=== PATIENT | female | born 1960 | race Caucasian/White ===

== ENCOUNTER → 2017-05-25 | Outpatient (CLI) | payer BC ==
--- NOTE | 2017-05-25 15:20 | MAMMOGRAPHY REPORT ---
BILATERAL DIGITAL SCREENING MAMMOGRAM TOMOSYNTHESIS WITH CAD: 05/25/2017 CLINICAL HISTORY: Routine screening. Patient has no complaints. TECHNIQUE: Breast tomosynthesis in addition to standard 2D mammography was performed. Current study was also evaluated with a Computer Aided Detection (CAD) system. COMPARISON: Comparison is made to exams dated: 04/29/2016 mammogram, 04/10/2015 aspiration, 04/10/2015 ul trasound biopsy, 04/10/2015 mammogram, 04/04/2015 ultrasound, and 03/19/2015 mammogram - [facility]. BREAST COMPOSITION: There are scattered areas of fibroglandular density in both breasts. FINDINGS: There is stable asymmetry in the lateral right breast and a stable ribbon-shaped biopsy mar ker clip in the upper outer left breast. No new suspicious mass, architectural distortion or cluster of microcalcifications is seen. IMPRESSION: ACR BI-RADS CATEGORY 1: NEGATIVE There is no mammographic evidence of malignancy. A 1 year screening mammogram is recommended. The pa tient will receive written notification of the results. Approximately 10% of breast cancers are not detected with mammography. A negative mammographic report should not delay biopsy if a clinically suggestive mass is present. Lu Henning M.D. ay/:05/25/2017 14:58:07 Museum Attendant: Frieda Mijares, [facility] letter sent: Normal 1/2 BI-RADS Code: ACR BI-RADS Category 1: Negative
== END | disposition home or self-care (01) ==
LOC: C.MAMM 12:34
PROVIDERS: ATTEND Obstetrics & Gynecology
DX: Z12.31 Encounter for screening mammogram for malignant neoplasm of breast (principal)